=== PATIENT | female | born 1990 | race African-American/Black ===

== ENCOUNTER 2018-08-14 08:34 | Emergency (ER) | payer OTHER ==
[~2018-08-14] VITALS: Ht 165.1 cm; Wt 81.6 kg
--- NOTE | 2018-08-14 08:52 | NUR ---
PATIENT TO ED MIGRAINE STARTING IN BACK/BASE OF HEAD SINCE YESTERDAY. VSS
[2018-08-14] MEDS ORDERED: KETOROLAC TROMETHAMINE INJ 30 MG/ML VIAL ONE (09:11)
[2018-08-14] MEDS ORDERED: DEXAMETHASONE SOD PHOSPHATE 10 MG/ML VIAL ONE (09:11)
[2018-08-14] MEDS ORDERED: METOCLOPRAMIDE HCL 10 MG/2 ML VIAL ONE (09:11)
[2018-08-14] MEDS ORDERED: diphenhydrAMINE HCL 50 MG/ML VIAL ONE (09:11)
[2018-08-14] MEDS: DEXAMETHASONE SOD PHOSPHATE 10 MG/ML VIAL IV ONE (09:23)
[2018-08-14] MEDS: IV NS 0.9% 1,000 ML BAG IV ONE (09:23)
[2018-08-14] MEDS: diphenhydrAMINE HCL 50 MG/ML VIAL IV ONE (09:23)
[2018-08-14] MEDS: KETOROLAC TROMETHAMINE INJ 30 MG/ML VIAL IV ONE (09:24)
[2018-08-14] MEDS: METOCLOPRAMIDE HCL 10 MG/2 ML VIAL IV ONE (09:24)
--- NOTE | 2018-08-14 09:44 | NUR ---
Patient discharged to home in stable condition. Written and verbal after care instructions given. Patient verbalizes understanding of instruction.
--- NOTE | 2018-08-14 09:44 | NUR ---
IV removed. Catheter intact and site benign. Pressure and 4x4 applied to site. No bleeding noted.
[2018-08-14 09:45] VITALS: BP 114/66
== END 2018-08-14 09:46 | disposition home or self-care (01) ==
LOC: ER 08:35
DX: R51 Headache (principal); R11.2 Nausea with vomiting, unspecified; R42 Dizziness and giddiness
CPT/HCPCS: 84703-TC; A4606; J1100; J1200; J1885; J2765; J7030; Z7610

== ENCOUNTER 2018-12-10 00:05 | Emergency (ER) | payer OTHER ==
[~2018-12-10] VITALS: Ht 165.1 cm; Wt 72.6 kg
[2018-12-10 00:38] VITALS: BP 109/78
[2018-12-10] MEDS ORDERED: LORAZEPAM 1 MG TABLET ONE (00:46)
[2018-12-10] MEDS ORDERED: LORAZEPAM 1 MG TABLET PO ONE (01:00)
== END 2018-12-10 00:58 | disposition home or self-care (01) ==
LOC: ER 00:08
DX: F41.9 Anxiety disorder, unspecified (principal); G47.00 Insomnia, unspecified

== ENCOUNTER 2021-03-02 08:15 | Emergency (ER) | payer OTHER ==
[~2021-03-02] VITALS: Ht 165.1 cm; Wt 63.5 kg
[2021-03-02 08:22] VITALS: BP 113/64
--- NOTE | 2021-03-02 08:25 | NUR ---
TO ER BED 12 AWAITING MD PEREIRA,CALM,COOPERATIVE,NAD
[2021-03-02] MEDS ORDERED: ONDA4TAB5 PO (08:38)
[2021-03-02] MEDS ORDERED: ALPR0.5T PO ×2 (08:38→08:39)
== END 2021-03-02 08:48 | disposition home or self-care (01) ==
LOC: ER 08:15
DX: F41.9 Anxiety disorder, unspecified (principal); R11.10 Vomiting, unspecified